=== PATIENT | female | born 1950 | race Caucasian/White ===

== ENCOUNTER 2017-01-12 20:51 | Emergency (ER) | payer MEDICARE ==
--- NOTE | 2017-01-12 21:37 | RAD ---
FOUR VIEWS OF THE LEFT KNEE 01/12/17 INDICATION: Fall with left knee pain. FINDINGS: No definite acute fracture or subluxation is evident. No joint capsular distention is noted. IMPRESSION: No acute osseous abnormality. POS: [facility]
--- NOTE | 2017-01-12 22:10 | RAD ---
TWO VIEWS OF THE LEFT FORELEG 01/12/17 INDICATION: Fall with left leg pain. IMPRESSION: No acute osseous abnormality. POS: [facility]
--- NOTE | 2017-01-12 22:11 | RAD ---
TWO VIEWS OF THE RIGHT FORELEG 01/12/17 INDICATION: Fall. IMPRESSION: No acute fracture or subluxation is evident. POS: [facility]
== END 2017-01-12 22:05 | disposition home or self-care (01) ==
LOC: MADERS 20:51
DX: S80.02XA Contusion of left knee, initial encounter (principal); W22.8XXA Striking against or struck by other objects, initial encounter